=== PATIENT | male | born 1970 | race Caucasian/White ===

== ENCOUNTER 2021-12-24 08:16 | Emergency (ER) | payer BC, SELFPAY ==
[2021-12-24 08:44] VITALS: BP 135/95; PULSE 110; RESP 16; TEMP 37.9; O2SAT 96; BMI 27.3
--- NOTE | 2021-12-24 09:28 | CRLHL7_ITS ---
For Patients: As a result of the Cures Act, medical imaging exams and procedure reports are released immediately into your electronic medical record. You may view this report before your referring provider. If you have questions, please contact your health care provider. INDICATION: Fever, SORE THROAT, + COVID TECHNIQUE: Chest 1 view COMPARISON: None FINDINGS: Low lung volumes. Cardiac silhouette is upper limits of normal. Subtle parenchymal densities suspected bilaterally without pleural effusion, pulmonary edema or pneumothorax. No fracture. Degenerative changes both shoulders. IMPRESSION: Low lung volumes with subtle bilateral infiltrates. Dictated by Kevin Herrera MD @ 12/24/2021 10:14:19 AM (Electronically Signed)
--- NOTE | 2021-12-24 09:30 | ED.GENADULT ---
HPI - General Adult General Chief complaint: Sore Throat Stated complaint: Fever, sore throat Time Seen by Provider: 12/24/21 09:02 History of Present Illness HPI narrative: This 51-year-old male comes in with his and reporting cough, sore throat, and fevers over the past 3 days. He has measured a temperature of a 104? F. He arrives here with a temperature of 100.3? F. he has some mild tachycardia. He does not report any shortness of breath. They do have an oximeter at home with results ranging from low 90s to 96% on room air. He states that he has not been taking much to eat or drink because his throat is sore. Related Data Previous Rx's Medication Instructions Recorded ketorolac 10 mg tablet 10 mg PO Q8H 5 days #15 tabs 12/24/21 methylprednisolone 4 mg tablets in See Rx Instructions PO .COMPLEX 12/24/21 a dose pack (Medrol ([place]ong)) #21 ea tramadol 50 mg tablet 50 mg PO Q6H PRN pain #20 tabs 12/24/21 Allergies Allergy/AdvReac Type Severity Reaction Status Date / Time No Known Drug Allergies Allergy Verified 12/24/21 08:44 Review of Systems Status of ROS: Reports: 10 or more systems reviewed and unremarkable except as noted in History and below Narrative: Constitutional: No weight gain or loss. Fevers as described above. Eyes: No discharge. No vision changes. HENT: Sore throat. Some nasal congestion. No ear pain. Cardiovascular: No chest pain, no palpitations. Respiratory: No shortness of breath. Cough which is occasionally productive. Gastrointestinal: No abdominal pain, no vomiting, no diarrhea. Genitourinary: No dysuria, no hematuria. Musculoskeletal: Normal range of motion. Skin: No rashes, no pruritis. Neurological: No dizziness, weakness, sensory change, speech change. Endo/Heme/Allergies: No bruising or bleeding. No polydipsia. Pysch: no suicidality, no anxiety, no insomnia. All other systems reviewed and are negative. PFSH PFSH Social History Smoking Status: Never smoker Do you use any of these nicotine containing products: None How often do you have a drink containing alcohol: never AUDIT-C Alcohol total score: 0 Non-prescribed substance use: denies use Exam Narrative: Exam Narrative: Constitutional: Well-developed, well-nourished, no acute distress. HEENT: Normocephalic, atraumatic. Pharyngeal erythema without exudate or tonsillar hypertrophy. Neck: Normal range of motion. Nontender. Supple. Heart: Regular. No murmurs. Tachycardia, rate around 115 beats per minute. Intact distal pulses. Lungs: Clear to auscultation. No chest discomfort. No wheezes, rhonchi, or rales. Abdomen: Normal bowel sounds. Nontender. No rebound tenderness. Genitalia: Deferred. Back: No midline tenderness. Normal range of motion. Extremities: Normal range of motion. No injury. Skin: Intact. No rash. Warm. No erythema or pallor. Neurologic: No altered sensation. No weakness. Alert and oriented. Psychiatric: No suicidality. No anxiety or depression. No insomnia. Nursing notes and vitals signs are reviewed. Const: Vital Signs, click to edit/add: Vital Signs - 24 hr 12/24/21 08:44 12/24/21 09:06 Temperature 100.3 F H Pulse Rate [Left P ulse Oximeter] 110 H Respiratory Rate 16 Blood Pressure [Le ft Upper Arm] 135/95 H Pulse Oximetry 96 Oxygen Delivery Me thod Room Air Room Air Course Vital Signs Vital signs: Initial Vital Signs Temperature 100.3 F H 12/24/21 08:44 Temperature Source Temporal Artery Scan 12/24/21 08:44 Pulse Rate 110 H 12/24/21 08:44 Respiratory Rate 16 12/24/21 08:44 Blood Pressure 135/95 H 12/24/21 08:44 Blood Pressure Mean 108 12/24/21 08:44 Blood Pressure Position Sitting 12/24/21 08:44 Pulse Oximetry 96 12/24/21 08:44 Oxygen Delivery Method 12/24/21 08:44 Vital Signs Temperature 100.3 F H 12/24/21 08:44 Pulse Rate 110 H 12/24/21 08:44 Respiratory Rate 16 12/24/21 08:44 Blood Pressure 135/95 H 12/24/21 08:44 Pulse Oximetry 96 12/24/21 08:44 Oxygen Delivery Method 12/24/21 08:44 Temperature 100.3 F H 12/24/21 08:44 Pulse Rate 110 H 12/24/21 08:44 Respiratory Rate 16 12/24/21 08:44 Blood Pressure 135/95 H 12/24/21 08:44 Pulse Oximetry 96 12/24/21 08:44 Oxygen Delivery Method 12/24/21 09:06 Medical Decision Making MDM Narrative Medical decision making narrative: This patient comes in with respiratory symptoms as described above. An IV was established where he received 4 mg of Zofran, Toradol 30 mg, and Solu-Medrol 125 mg. This helped him feel better. Chest x-ray shows some mild patchy infiltrates. This would be consistent with his positive COVID test. Strep test is negative. His lactate is in normal range and other lab results are also reassuring. The patient is okay to go home. He does have an oximeter at home and is instructed to return if his resting oximetry is below 90%. He received prescriptions for Medrol Dosepak, Toradol, and tramadol. I did discuss Paxlovid, but stated to him that it is not clearly indicated for his health status. Lab Data Labs: Lab Results 12/24/21 12/24/21 12/24/21 Range/Units 08:50 09:20 09:40 WBC 9.92 (4.50-11.00) K/uL RBC 4.97 (4.30-5.90) m/uL Hgb 14.8 (13.5-17.5) gm/dL Hct 42.9 (37.0-53.0) % MCV 86 (80-100) fL MCH 30 (26-34) pg MCHC 35 (32-36) gm/dL RDW Coeff of [place] 12.6 (11.5-15.5) % Plt Count 170 (140-440) K/uL Neut % (Auto) 90.9 H (42.0-72.0) % Lymph % (Auto) 3.9 L (20-44) % [place] % (Auto) 4.9 (0.0-11.0) % Eos % (Auto) 0.0 (0.0-7.0) % Baso % (Auto) 0.1 (0.0-3.0) % Neut # (Auto) 9.00 H (1.7-7.0) K/uL Lymph # (Auto) 0.40 L (0.90-2.90) K/uL [place] # (Auto) 0.50 (0.00-0.90) K/UL Eos # (Auto) 0.00 (0.00-0.50) K/uL Baso # (Auto) 0.01 (0.00-0.30) K/uL Abs Immat Gran (auto) 0.02 (0.00-0.30) K/uL Sodium (135-149) mmol/L Potassium (3.6-5.1) mmol/L Chloride (96-114) mmol/L Carbon Dioxide (20-32) mmol/L BUN (7-30) mg/dL Creatinine (0.5-1.5) mg/dL Estimated Creat Clear Estimated GFR ml/min Glucose (60-115) mg/dL Lactate (0.5-1.9) mmol/L Calcium (8.4-10.6) mg/dL SARS-CoV-2 (PCR) POSITIVE SARS-CoV-2 A (Negative) Influenza Type A (PCR) Negative PCR FLU A (Negative) Influenza Type B (PCR) Negative PCR FLU B (Negative) Group A Strep DNA NOT DETECTED (No Detected) 12/24/21 12/24/21 Range/Units 09:40 09:40 WBC (4.50-11.00) K/uL RBC (4.30-5.90) m/uL Hgb (13.5-17.5) gm/dL Hct (37.0-53.0) % MCV (80-100) fL MCH (26-34) pg MCHC (32-36) gm/dL RDW Coeff of [place] (11.5-15.5) % Plt Count (140-440) K/uL Neut % (Auto) (42.0-72.0) % Lymph % (Auto) (20-44) % [place] % (Auto) (0.0-11.0) % Eos % (Auto) (0.0-7.0) % Baso % (Auto) (0.0-3.0) % Neut # (Auto) (1.7-7.0) K/uL Lymph # (Auto) (0.90-2.90) K/uL [place] # (Auto) (0.00-0.90) K/UL Eos # (Auto) (0.00-0.50) K/uL Baso # (Auto) (0.00-0.30) K/uL Abs Immat Gran (auto) (0.00-0.30) K/uL Sodium 132 L (135-149) mmol/L Potassium 3.9 (3.6-5.1) mmol/L Chloride 97 (96-114) mmol/L Carbon Dioxide 23 (20-32) mmol/L BUN 13 (7-30) mg/dL Creatinine 1.2 (0.5-1.5) mg/dL Estimated Creat Clear 73.51 Estimated GFR 72 ml/min Glucose 167 H (60-115) mg/dL Lactate 1.7 (0.5-1.9) mmol/L Calcium 9.0 (8.4-10.6) mg/dL SARS-CoV-2 (PCR) (Negative) Influenza Type A (PCR) (Negative) Influenza Type B (PCR) (Negative) Group A Strep DNA (No Detected) Imaging Data Chest x-ray: Radiologist's impression: Low lung volumes with subtle bilateral infiltrates. Discharge Plan Discharge Clinical Impression: COVID-19 Patient Disposition: Home, Self-Care Condition: Stable Additional Instructions: Take medications as needed and indicated. Follow up with MD or return if worsening symptoms happen, especially if becoming short of breath. Prescriptions: New tramadol 50 mg tablet 50 mg PO Q6H PRN (Reason: pain) Qty: 20 0RF ketorolac 10 mg tablet 10 mg PO Q8H 5 Days Qty: 15 0RF methylprednisolone [Medrol ([place])] 4 mg tablets,dose pack See Rx Instructions .ROUTE .COMPLEX Qty: 21 0RF Rx Instructions: orally per package directions Follow Up/Referrals: Provider,Not a Local [Primary Care Provider] - Stand Alone Forms: MyHealth Info Instructions
[2021-12-24 09:33] LABS: PCR FLU A Negative PCR FLU A (Negative); PCR FLU B Negative PCR FLU B (Negative)
[2021-12-24 09:34] LABS: SARS PCR* POSITIVE SARS-CoV-2 (Negative)
[2021-12-24 09:52] LABS: Strep A DNA Probe* NOT DETECTED (No Detected)
[2021-12-24 09:54] LABS: Lactate* 1.7 mmol/L (0.5-1.9)
[2021-12-24] MEDS: METHYLPREDNISOLONE SOD SUCC 62.5 MG/ML (125) 125 MG IVP (09:54)
[2021-12-24] MEDS: 0.9 % SODIUM CHLORIDE 1000 ml 1,000 ML IV (09:54)
[2021-12-24] MEDS: KETOROLAC 30 MG/ML inj IVP (09:54)
[2021-12-24] MEDS: ONDANSETRON 2 MG/ML inj 4 MG IVP (09:54)
[2021-12-24 09:57] LABS: Basophils Absolute Auto 0.01 K/uL (0.00-0.30); Basophils Percent Auto 0.1 % (0.0-3.0); Hematocrit 42.9 % (37.0-53.0); Hemoglobin* 14.8 gm/dL (13.5-17.5); Immature Granulocytes Abs Auto 0.02 K/uL (0.00-0.30); Lymphocytes Percent Auto 3.9 % (20-44); Mean Corpuscular HGB Conc 35 gm/dL (32-36); Mean Corpuscular Hemoglobin 30 pg (26-34); Mean Corpuscular Volume 86 fL (80-100); Monocytes Percent Auto 4.9 % (0.0-11.0); Neutrophils Percent Auto 90.9 % (42.0-72.0); Platelet Count* 170 K/uL (140-440); RDW Coefficient of Variation % 12.6 % (11.5-15.5); Red Blood Count 4.97 m/uL (4.30-5.90); White Blood Count* 9.92 K/uL (4.50-11.00)
[2021-12-24 10:05] LABS: Slide Review Reflex No
[2021-12-24 10:07] LABS: Chloride* 97 mmol/L (96-114)
[2021-12-24 10:08] LABS: Potassium* 3.9 mmol/L (3.6-5.1); Sodium* 132 mmol/L (135-149)
[2021-12-24 10:10] LABS: Creatinine* 1.2 mg/dL (0.5-1.5); Est. Creatinine Clearance* 73.51; Estimated Glomerular Filt Rate 72 ml/min
[2021-12-24 10:11] LABS: Blood Urea Nitrogen* 13 mg/dL (7-30); Carbon Dioxide* 23 mmol/L (20-32); Glucose* 167 mg/dL (60-115)
[2021-12-24 10:30] VITALS: BP 128/88; PULSE 92; RESP 16; O2SAT 95
== END 2021-12-24 10:57 | disposition home or self-care (01) ==
PROVIDERS: Emergency Provider Emergency Medicine Emergency Medical Services
DX: U07.1 COVID-19 (principal)
CPT/HCPCS: 36415; 71045; 80048; 83605; 85025; 87040; 87631; 87635; 87651; 96374; 96375; 99285; J1885; J2405; J2930; J7030